=== PATIENT | male | born 1985 | race Caucasian/White ===

== ENCOUNTER 2019-09-19 19:34 | Emergency (ER) | payer OTHER ==
[~2019-09-19] VITALS: Ht 182 cm; Wt 79.3 kg
[2019-09-19] MEDS ORDERED: LACTATED RINGERS 1,000 ML IV ONE (19:58)
[2019-09-19 20:02] LABS: BASOPHILS % (AUTO) 1 % (0-10); EOSINOPHILS # (AUTO) 0.1 10^3/uL (0.0-0.3); EOSINOPHILS % (AUTO) 2 % (0-10); HEMATOCRIT 42 % (40-54); HEMOGLOBIN 14.5 G/DL (13.3-17.7); LYMPHOCYTES # (AUTO) 2.5 X 10^3 (1.0-4.0); LYMPHOCYTES % (AUTO) 30 % (12-44); MEAN CORPUSCULAR HEMOGLOBIN 29 PG (25-34); MEAN CORPUSCULAR HGB CONC 34 G/DL (32-36); MEAN CORPUSCULAR VOLUME 84 FL (80-99); MEAN PLATELET VOLUME 10.1 FL (7.4-10.4); MONOCYTES # (AUTO) 0.8 X 10^3 (0.0-1.0); MONOCYTES % (AUTO) 10 % (0-12); NEUTROPHILS # (AUTO) 4.8 X 10^3 (1.8-7.8); NEUTROPHILS % (AUTO) 58 % (42-75); PLATELET COUNT 371 10^3/uL (130-400); RED CELL DISTRIBUTION WIDTH 13.9 % (10.0-14.5); WHITE BLOOD COUNT 8.3 10^3/uL (4.3-11.0)
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
[2019-09-19] MEDS ORDERED: KETOROLAC 30 MG/ML VIAL IVP ONE (20:15)
[2019-09-19 20:19] LABS: ALANINE AMINOTRANSFERASE 16 U/L (0-55); ALBUMIN 4.2 GM/DL (3.2-4.5); ALKALINE PHOSPHATASE 84 U/L (40-136); BILIRUBIN,TOTAL 0.4 MG/DL (0.1-1.0); BUN/CREATININE RATIO 10; CALCIUM 9.5 MG/DL (8.5-10.1); CARBON DIOXIDE 21 MMOL/L (21-32); CHLORIDE 108 MMOL/L (98-107); CREATINE KINASE 42 U/L (30-200); CREATININE SERUM 1.28 MG/DL (0.60-1.30); GFR ESTIMATED > 60; GLUCOSE 94 MG/DL (70-105); POTASSIUM 3.4 MMOL/L (3.6-5.0); SODIUM 143 MMOL/L (135-145); TOTAL PROTEIN 7.6 GM/DL (6.4-8.2)
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
--- NOTE | 2019-09-19 20:59 | NUR ---
Patient care report from Janey Kent RN.
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
[2019-09-19 21:23] VITALS: BP 119/75
== END 2019-09-19 21:31 | disposition home or self-care (01) ==
LOC: ER 19:38
DX: S00.83XA Contusion of other part of head, initial encounter (principal); S00.12XA Contusion of left eyelid and periocular area, initial encounter; S20.20XA Contusion of thorax, unspecified, initial encounter; J33.8 Other polyp of sinus; R40.2142 Coma scale, eyes open, spontaneous, at arrival to emergency department; R40.2252 Coma scale, best verbal response, oriented, at arrival to emergency department; R40.2362 Coma scale, best motor response, obeys commands, at arrival to emergency department; F17.210 Nicotine dependence, cigarettes, uncomplicated; Z88.0 Allergy status to penicillin; Z88.2 Allergy status to sulfonamides; Z88.5 Allergy status to narcotic agent; Z88.1 Allergy status to other antibiotic agents; Z88.8 Allergy status to other drugs, medicaments and biological substances; Y04.0XXA Assault by unarmed brawl or fight, initial encounter
CPT/HCPCS: 36415; 70486; 71100; 80053; 82550; 85025

== ENCOUNTER 2019-10-04 03:30 | Inpatient (IN) | payer OTHER ==
[~2019-10-04] VITALS: Ht 182.8 cm; Wt 73.4 kg
[2019-10-04] VITALS (16 sets, daily range): BP systolic 87–133; BP diastolic 46–96
[2019-10-04] MEDS ORDERED: LACTATED RINGERS 1,000 ML IV ONE ×2 (03:37→04:43)
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
[2019-10-04] MEDS ORDERED: NS 100 ML (IVPB) BAG IV ONE (03:45)
[2019-10-04] MEDS ORDERED: IOHEXOL 350 MG/ML 100 ML (OMNIPAQUE 350) VIAL IV ONE (03:45)
[2019-10-04] MEDS ORDERED: HOLD METFORMIN - RECEIVED CONTRAST 20 ML VIAL IV SCH (03:45)
[2019-10-04 03:46] LABS: HEMOGLOBIN 12.8 G/DL (13.3-17.7); MEAN PLATELET VOLUME 9.8 FL (7.4-10.4); WHITE BLOOD COUNT 21.6 10^3/uL (4.3-11.0)
[2019-10-04 03:57] LABS: ALBUMIN 3.9 GM/DL (3.2-4.5); CHLORIDE 100 MMOL/L (98-107); POTASSIUM 3.9 MMOL/L (3.6-5.0); SODIUM 135 MMOL/L (135-145)
[2019-10-04 03:59] LABS: CALCIUM 8.9 MG/DL (8.5-10.1)
[2019-10-04 04:00] LABS: GLUCOSE 100 MG/DL (70-105)
[2019-10-04] MEDS ORDERED: TETANUS,DIPTH,PERTUSS P/F (BOOSTRIX) 0.5 ML VIAL IM ONE (04:00)
[2019-10-04 04:01] LABS: BILIRUBIN,TOTAL 0.9 MG/DL (0.1-1.0); CARBON DIOXIDE 21 MMOL/L (21-32)
[2019-10-04 04:04] LABS: ALKALINE PHOSPHATASE 82 U/L (40-136); CREATININE SERUM 1.87 MG/DL (0.60-1.30); GFR ESTIMATED 41
[2019-10-04 04:05] LABS: BILIRUBIN,DIRECT 0.6 MG/DL (0.0-0.3); BILIRUBIN,INDIRECT 0.3 MG/DL; BUN/CREATININE RATIO 15
[2019-10-04 04:07] LABS: ALANINE AMINOTRANSFERASE 21 U/L (0-55)
[2019-10-04] MEDS ORDERED: LIDOCAINE/EPI 2% 1:100,00 (XYLOCAINE) 20 ML VIAL ONE (04:26)
[2019-10-04] MEDS ORDERED: fentaNYL INJECTION 100 MCG/2 ML AMP IVP ONE (04:30)
[2019-10-04] MEDS ORDERED: VANCOMYCIN INJECTION 750 MG in NS (IVPB) 100 ML IV ONE (04:30)
[2019-10-04] MEDS ORDERED: CLINDAMYCIN 900 MG/50 ML IVPB 50 ML IV ONE (04:30)
--- NOTE | 2019-10-04 04:32 | NUR ---
WOUND CX COLLECTED FROM RIGHT FOREARM ABSCESS.
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
[2019-10-04] MEDS ORDERED: VANCOMYCIN INJECTION 500 MG in NS (IVPB) 100 ML IV ONE (05:30)
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
[2019-10-04] MEDS ORDERED: NS IV 500 ML 500 ML IV ONE (07:00)
[2019-10-04] MEDS ORDERED: ONDANSETRON 4 MG/2 ML (SDV) Z0FRAN IV PRN (07:00)
--- NOTE | 2019-10-04 07:06 | NUR ---
PTD Vancomycin - Patient received Loading Dose of 1250mg in ER, continue with maint dose of 1000mg every 12 hours. Trough ordered for 10/05 @ 0500.
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
[2019-10-04] MEDS: morphine INJ 4 MG/ML 1 ML (VIAL/SYRINGE) IV PRN ×4 (07:42→22:22)
[2019-10-04] MEDS: MEROPENEM 1,000 MG/SWFI 20 ML IV PUSH IV SCH ×6 (07:43→22:19)
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
[2019-10-04 07:48] LABS: AMPHETAMINE SCREEN, URINE POSITIVE (NEGATIVE); BARBITURATE SCREEN URINE NEGATIVE (NEGATIVE); BENZODIAZEPINES SCREEN URINE NEGATIVE (NEGATIVE); CANNABINOID SCREEN, URINE NEGATIVE (NEGATIVE); COCAINE SCREEN URINE NEGATIVE (NEGATIVE); METHADONE STAT NEGATIVE (NEGATIVE); METHAMPHETAMINE SCREEN URINE S POSITIVE (NEGATIVE); OPIATE SCREEN URINE NEGATIVE (NEGATIVE); OXYCODONE STAT NEGATIVE (NEGATIVE); PROPOXYPHENE STAT NEGATIVE (NEGATIVE); TRICYCLIC ANTIDEPRESSANTS SCRE NEGATIVE (NEGATIVE)
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
--- NOTE | 2019-10-04 08:41 | Diagnostic Imaging Report ---
Indication: Follow-up right-sided pneumothorax. Comparison: Earlier same date. Discussion: Single portable upright view of the chest was obtained. 1.4 cm right apical pneumothorax, decreased from previous 2.4 cm. No consolidation or pleural fluid. Normal heart size. No osseous abnormality. No foreign body. Impression: 1. Decreasing right apical pneumothorax. Dictated by: Dictated on workstation # [id number]
[2019-10-04] MEDS ORDERED: ACETAMINOPHEN 325 MG TABLET PO PRN (09:15)
[2019-10-04] MEDS: LACTATED RINGERS 1,000 ML IV SCH ×4 (09:17→23:32)
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
--- NOTE | 2019-10-04 13:28 | Diagnostic Imaging Report ---
INDICATION: Follow-up right pneumothorax. Dyspnea. COMPARISON: Earlier same date. DISCUSSION: Single portable upright expiratory view of the chest was obtained. 1.4 cm right apical pneumothorax is stable. No consolidation or pleural fluid. Normal heart size. No osseous abnormality. IMPRESSION: 1. Stable right apical small pneumothorax. Dictated by: Dictated on workstation # [id number]
--- NOTE | 2019-10-04 14:23 | NUR ---
LATE ENTRY: 1250 DR ESCOBEDO NOTIFIED THAT PT STATES " I FEEL LIKE I'M LEAKING AIR", PT LUNGS CTA SLIGHTLY DIMINISHED. BP NOTED AT 88/52 WITH PULSE 68. PT CONTINUES TO ASK FOR REGULAR FOOD, ORDERS RECEIVED TO OBTAIN CXR AT 1600 AND CONTINUE PT ON CLEAR LIQUID DIET. CXR ORDERED AT 1600, RADIOLOGY IN ROOM TO OBTAIN CXR AT 1330. DR ESCOBEDO NOTIFIED OF CXR RESULTS AND TIME OF CXR. NO NEW ORDERS RECEIVED. PT SITTING UP IN BED TEXTING ON PHONE, VOICES NO NEEDS AT THIS TIME, CALL LIGHT AND OTHER PERSONAL ITEMS WITHIN REACH WILL CONTINUE TO MONITOR.
[2019-10-04] MEDS: VANCOMYCIN 1 GM/NS 250 ML IVPB IV SCH ×2 (17:04)
--- NOTE | 2019-10-04 22:36 | NUR ---
This RN has educated pt multiple times about deep breathing and wearing the oxygen that is ordered by the doctor. Pt verbalizes understanding, but continues to remove oxygen in order to speak on the phone. This RN will continue to educate and monitor pt
[2019-10-05] VITALS (9 sets, daily range): BP systolic 104–121; BP diastolic 67–79
[2019-10-05 02:09] LABS: BASOPHILS % (AUTO) 0 % (0-10); EOSINOPHILS # (AUTO) 0.1 10^3/uL (0.0-0.3); EOSINOPHILS % (AUTO) 2 % (0-10); HEMATOCRIT 29 % (40-54); LYMPHOCYTES # (AUTO) 2.3 X 10^3 (1.0-4.0); LYMPHOCYTES % (AUTO) 39 % (12-44); MEAN CORPUSCULAR HEMOGLOBIN 29 PG (25-34); MEAN CORPUSCULAR HGB CONC 34 G/DL (32-36); MEAN CORPUSCULAR VOLUME 85 FL (80-99); MEAN PLATELET VOLUME 10.1 FL (7.4-10.4); MONOCYTES # (AUTO) 0.4 X 10^3 (0.0-1.0); MONOCYTES % (AUTO) 6 % (0-12); NEUTROPHILS # (AUTO) 3.1 X 10^3 (1.8-7.8); NEUTROPHILS % (AUTO) 53 % (42-75); PLATELET COUNT 281 10^3/uL (130-400); RED CELL DISTRIBUTION WIDTH 12.7 % (10.0-14.5); WHITE BLOOD COUNT 5.9 10^3/uL (4.3-11.0)
[2019-10-05] MEDS: morphine INJ 4 MG/ML 1 ML (VIAL/SYRINGE) IV PRN (02:09)
[2019-10-05 02:54] LABS: CHLORIDE 107 MMOL/L (98-107); POTASSIUM 3.7 MMOL/L (3.6-5.0); SODIUM 136 MMOL/L (135-145)
[2019-10-05 02:55] LABS: CALCIUM 7.9 MG/DL (8.5-10.1)
[2019-10-05 02:56] LABS: GLUCOSE 95 MG/DL (70-105)
[2019-10-05 02:57] LABS: CARBON DIOXIDE 21 MMOL/L (21-32)
[2019-10-05 03:00] LABS: CREATININE SERUM 0.77 MG/DL (0.60-1.30); GFR ESTIMATED > 60
[2019-10-05 03:01] LABS: BUN/CREATININE RATIO 16
[2019-10-05 03:02] LABS: MAGNESIUM 1.8 MG/DL (1.6-2.4)
[2019-10-05] MEDS ORDERED: MAGNESIUM 1 GM/100 ML IVPB 100 ML IV SCH ×2 (06:00)
[2019-10-05] MEDS ORDERED: KCL 20 MEQ TAB (K-DUR) PO SCH ×2 (06:00)
[2019-10-05] MEDS ORDERED: POTASSIUM CL 10MEQ/50ML IVPB 50 ML IV SCH ×2 (06:00)
[2019-10-05] MEDS: MEROPENEM 1,000 MG/SWFI 20 ML IV PUSH IV SCH ×2 (06:10)
[2019-10-05] MEDS: VANCOMYCIN 1 GM/NS 250 ML IVPB IV SCH ×2 (06:10)
[2019-10-05] MEDS: LACTATED RINGERS 1,000 ML IV SCH (06:12)
--- NOTE | 2019-10-05 07:49 | Diagnostic Imaging Report ---
Indication: Dyspnea. Comparison: 10/04/2019. Discussion: Single portable upright view of the chest was obtained. Right apical pneumothorax measures 1.1 cm, previously 1.5 cm. Focal consolidation within the mid to lower right lung could be seen with atelectasis or pneumonia. No pleural fluid. Normal heart size. No osseous abnormality. Impression: 1. Small right apical pneumothorax, slightly decreased. 2. New consolidation within the right mid to lower lung. Dictated by: Dictated on workstation # [id number]
--- NOTE | 2019-10-05 08:38 | NUR ---
0820 PT ASSESSMENT COMPLETE SEE FLOW SHEET, PT AGITATED THIS AM STATES " I'M READY TO GET OUT OF HERE," " I WAN'T SOME FOOD, I'M TIRED OF WAITING," PT AGREEABLE TO ALLOW THIS RN TO ASSESS HIM, THIS RN STATED TO PT THE RISK AND BENEFITS OF WAITING ON DR AND RECEIVED PROPER TREATMENT, PT CONTINUED TO STATE " I'M LEAVING," AMA PAPER SIGNED PT VERBALIZES UNDERSTANDING OF FORM, IV D/C WITH TIP INTACT. DR ESCOBEDO SPOKE TO LIQUID SUGAR FORTIFIER SHAY AND WAS INFORMED OF PT'S AMA. Addendum: 10/05/19 at 0842 by ROBER SEPULVEDA RN ALL PERSONAL ITEMS RETURNED TO PT.
[2019-10-05] MEDS ORDERED: KETO10TA PO (17:29)
[2019-10-05] MEDS ORDERED: CLIN300C11 PO (17:29)
[2019-10-06] MEDS ORDERED: TROUGH ORDER-PHARMACY XX NR (05:00)
== END 2019-10-05 08:30 | disposition left against medical advice (07) | DRG 853 ==
LOC: EDUNIT# 03:31 → ER 03:32 → ICU 04:54
PROVIDERS: ADMIT Surgery; ATTEND Surgery
PROC: 0J9G0ZZ Drainage of Right Lower Arm Subcutaneous Tissue and Fascia, Open Approach (ICD-10-PCS; principal; 2019-10-04)
DX: A41.9 Sepsis, unspecified organism (principal); S21.311A Laceration without foreign body of right front wall of thorax with penetration into thoracic cavity, initial encounter; L02.413 Cutaneous abscess of right upper limb; S27.0XXA Traumatic pneumothorax, initial encounter; E87.2 Acidosis; N17.9 Acute kidney failure, unspecified; R65.20 Severe sepsis without septic shock; F32.9 Major depressive disorder, single episode, unspecified; S21.212A Laceration without foreign body of left back wall of thorax without penetration into thoracic cavity, initial encounter; S21.211A Laceration without foreign body of right back wall of thorax without penetration into thoracic cavity, initial encounter; F17.210 Nicotine dependence, cigarettes, uncomplicated; F15.10 Other stimulant abuse, uncomplicated; X99.1XXA Assault by knife, initial encounter; Y92.009 Unspecified place in unspecified non-institutional (private) residence as the place of occurrence of the external cause; Y07.04 Female partner, perpetrator of maltreatment and neglect; Z23 Encounter for immunization
CPT/HCPCS: 10140; 36415; 71045; 71260; 73201; 74177; 80048; 80076; 80306; 80320; 83605; 83735; 85025; 85027; 86141; 86850; 86900; 86901; 87040; 87070; 87077; 87081; 87205; 90715; 93041

== ENCOUNTER 2019-10-05 15:55 | Emergency (ER) | payer OTHER ==
[~2019-10-05] VITALS: Ht 182 cm; Wt 74.8 kg
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
[2019-10-05 17:01] LABS: AMPHETAMINE SCREEN, URINE POSITIVE (NEGATIVE); BARBITURATE SCREEN URINE NEGATIVE (NEGATIVE); BENZODIAZEPINES SCREEN URINE NEGATIVE (NEGATIVE); CANNABINOID SCREEN, URINE NEGATIVE (NEGATIVE); COCAINE SCREEN URINE NEGATIVE (NEGATIVE); METHADONE STAT NEGATIVE (NEGATIVE); METHAMPHETAMINE SCREEN URINE S POSITIVE (NEGATIVE); OPIATE SCREEN URINE POSITIVE (NEGATIVE); OXYCODONE STAT POSITIVE (NEGATIVE); PROPOXYPHENE STAT NEGATIVE (NEGATIVE); TRICYCLIC ANTIDEPRESSANTS SCRE NEGATIVE (NEGATIVE)
[2019-10-05] MEDS ORDERED: CLINDAMYCIN 600 MG/4ML (CLEOCIN) VIAL IM ONE (17:15)
[2019-10-05] MEDS ORDERED: CLINDAMYCIN 300 MG/2ML (CLEOCIN) VIAL ONE (17:21)
[2019-10-05] MEDS ORDERED: KETO10TA PO (17:29)
[2019-10-05] MEDS ORDERED: CLIN300C11 PO (17:29)
[2019-10-05] MEDS ORDERED: KETOROLAC 60 MG/2 ML VIAL IM ONE (17:30)
--- NOTE | 2019-10-05 17:34 | NUR ---
When this rn walked into pt room to dress pt wound and administer medication, pt was shuffling thtough cabinets and dressing own arm. pt refuses im cleocin and toradol. pt states, "I don't know why I even came back, they told this morning after I checked out ama that I could come back and get readmitted." "I don't need antibiotics, I'll figure it out."
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
[2019-10-05 17:35] VITALS: BP 110/68
== END 2019-10-05 17:34 | disposition home or self-care (01) ==
LOC: EDUNIT# 15:55 → ER 15:57
DX: L02.413 Cutaneous abscess of right upper limb (principal); J18.9 Pneumonia, unspecified organism; J93.9 Pneumothorax, unspecified; G89.29 Other chronic pain; M54.9 Dorsalgia, unspecified; F17.210 Nicotine dependence, cigarettes, uncomplicated; Z87.828 Personal history of other (healed) physical injury and trauma; Z88.0 Allergy status to penicillin; Z88.2 Allergy status to sulfonamides; Z88.5 Allergy status to narcotic agent; Z88.1 Allergy status to other antibiotic agents; Z88.8 Allergy status to other drugs, medicaments and biological substances; Z79.1 Long term (current) use of non-steroidal anti-inflammatories (NSAID)
CPT/HCPCS: 71046; 80306

== ENCOUNTER 2019-11-26 20:17 | Emergency (ER) | payer OTHER ==
[~2019-11-26] VITALS: Ht 182 cm; Wt 70.0 kg
[2019-11-26 20:17] VITALS: BP 128/73
[~2019-11-26 20:17] MED LIST: CLIN300C11 PO; KETO10TA PO
[2019-11-26] MEDS ORDERED: NS IV 500 ML 500 ML IV ONE (20:20)
[2019-11-26] MEDS ORDERED: ONDANSETRON 4 MG/2 ML (SDV) Z0FRAN ONE (20:29)
--- NOTE | 2019-11-26 20:29 | ED Integumentary General ---
General Chief Complaint: Skin/Wound Problems Stated Complaint: SPIDER BITE Nursing Triage Note: PT ARRIVES BY EMS WITH WHAT HE THINKS IS A SPIDER BITE TO HIS LEFT FOREHEAD AND RIGHT JAW; STATES ONSET 2 DAYS AGO. PT REPORTS NAUSEA BUT HAS NOT VOMITED. Source: patient Exam Limitations: no limitations History of Present Illness Date Seen by Provider: Nov 26, 2019 Time Seen by Provider: 20:10 Initial Comments Patient arrives by EMS from home with chief complaint of 3 days of swelling pain in the right side of his jaw that he's been draining purulent material from. He has a similar but smaller wound on his left forehead. He has multiple small excoriations over the veins of bilateral forearms which she remarks are from bumping into things. Patient denies any fever or vomiting but does have some queasy nausea feeling at times. He's been using Tylenol and ibuprofen. He says penicillins cause him to go anaphylactic and . Allergies and Home Medications Allergies Coded Allergies: Penicillins (Verified Allergy, Unknown, 09/19/19) sulfamethoxazole (Verified Allergy, Unknown, 09/19/19) tramadol (Verified Allergy, Unknown, 09/19/19) trimethoprim (Verified Allergy, Unknown, 09/19/19) diclofenac (Verified Adverse Reaction, Unknown, palpitations, 09/19/19) Home Medications Clindamycin HCl 300 Mg Capsule, 300 MG PO QID Prescribed by: FRANCISCO DOMINIQUE on 10/05/191728 Ketorolac Tromethamine 10 Mg Tablet, 10 MG PO Q6H Prescribed by: FRANCISCO DOMINIQUE on 10/05/19 1729 Patient Home Medication List Home Medication List Reviewed: Yes Review of Systems Review of Systems Constitutional: No chills, No fever EENTM: No ear discharge, No ear pain Respiratory: No cough, No short of breath Cardiovascular: No chest pain, No Hx of Intervention Gastrointestinal: No abdominal pain, No nausea, No vomiting Genitourinary: No discharge, No dysuria Musculoskeletal: No back pain, No joint pain Skin: No pruritus, No rash Psychiatric/Neurological: Denies Headache, Denies Numbness All Other Systems Reviewed Negative Unless Noted: Yes Past Pyhngwb-Brngfu-Cfrdkx Hx Patient Social History Alcohol Use: Occasionally Uses Number of Drinks Today: AA Alcohol Beverage of Choice: Beer Recreational Drug Use: No Drug of Choice: THC, UDS + FOR METH Smoking Status: Current Everyday Smoker Type Used: Cigarettes 2nd Hand Smoke Exposure: Yes Recent Foreign Travel: No Contact w/Someone Who Travel: No Recent Infectious Disease Expo: No Recent Hopitalizations: Yes (10/04/19) Immunizations Up To Date Tetanus Booster (TDap): Unknown Seasonal Allergies Seasonal Allergies: No Past Medical History Surgeries: Yes (knee x 2, ) Orthopedic Respiratory: No Cardiac: No Neurological: No Genitourinary: No Gastrointestinal: No Musculoskeletal: Yes (KNEE SURGERY) Back Injury, Chronic Back Pain Endocrine: No HEENT: No Cancer: No Psychosocial: Yes Depression Integumentary: No Family Medical History No Pertinent Family Hx Physical Exam Vital Signs Vital Signs - First Documented 11/26/19 20:17 Temp 37.5 Pulse 118 Resp 18 B/P (MAP) 128/73 (91) Pulse Ox 93 O2 Delivery Room Air Capillary Refill : Less Than 3 Seconds General Appearance: mild distress, thin HEENT: PERRL/EOMI, normal ENT inspection, TMs normal, pharynx normal (mod dental caries) Cardiovascular: normal peripheral pulses, regular rate, rhythm Respiratory: no respiratory distress, no accessory muscle use Gastrointestinal: normal bowel sounds, non tender, soft Neurologic/Psychiatric: consultative sales associate II-XII nml as tested, no motor/sensory deficits, alert Skin: other (and multiple excoriations over the veins of bilateral upper extremities. There is a large 6 cm diameter area of calor, rubor, induration and tenderness with some mild fluctuance and a central pore that the patient has opened up. This is over his right jawline. Under the left frontal scalp there is a 3 cm similar area of induration without any fluctuance and an open central pore.) Procedures/Interventions I&D : Site: right angle of the mandible Blade Size: 11 I & D Procedure: betadine prep (chlorhexidine), sterile dressing applied Progress Skin was infiltrated with 3 cc of 1% lidocaine without epinephrine. The patient had good anesthesia. Wound was thoroughly cleansed with chlorhexidine and sterile saline and then the previous poor was opened wider 1 cm x 1 cm in the corners were trimmed. Using a sterile cotton tip probe we were able to break up any loculations and express out some sanguinous purulent discharge. A cavity approximately 1 x 2 by half centimeter was explored. Was flushed with about 200 cc of chlorhexidine and sterile saline and then sterile saline alone. Progress/Results/Core Measures Results/Orders Lab Results Laboratory Tests Test 11/26/19 20:23 Range/Units White Blood Count 11.9 H 4.3-11.0 10^3/uL Red Blood Count 4.44 4.35-5.85 10^6/uL Hemoglobin 12.7 L 13.3-17.7 G/DL Hematocrit 37 L 40-54 % Mean Corpuscular Volume 82 80-99 FL Mean Corpuscular Hemoglobin 29 25-34 PG Mean Corpuscular Hemoglobin Concent 35 32-36 G/DL Red Cell Distribution Width 13.7 10.0-14.5 % Platelet Count 335 130-400 10^3/uL Mean Platelet Volume 9.9 7.4-10.4 FL Neutrophils (%) (Auto) 77 H 42-75 % Lymphocytes (%) (Auto) 14 12-44 % Monocytes (%) (Auto) 7 0-12 % Eosinophils (%) (Auto) 1 0-10 % Basophils (%) (Auto) 0 0-10 % Neutrophils # (Auto) 9.2 H 1.8-7.8 X 10^3 Lymphocytes # (Auto) 1.7 1.0-4.0 X 10^3 Monocytes # (Auto) 0.9 0.0-1.0 X 10^3 Eosinophils # (Auto) 0.1 0.0-0.3 10^3/uL Basophils # (Auto) 0.1 0.0-0.1 10^3/uL Sodium Level 134 L 135-145 MMOL/L Potassium Level 4.1 3.6-5.0 MMOL/L Chloride Level 99 98-107 MMOL/L Carbon Dioxide Level 20 L 21-32 MMOL/L Anion Gap 15 H 5-14 MMOL/L Blood Urea Nitrogen 27 H 7-18 MG/DL Creatinine 1.62 H 0.60-1.30 MG/DL Estimat Glomerular Filtration Rate 48 BUN/Creatinine Ratio 17 Glucose Level 77 70-105 MG/DL Calcium Level 9.4 8.5-10.1 MG/DL Corrected Calcium 9.2 8.5-10.1 MG/DL Total Bilirubin 1.5 H 0.1-1.0 MG/DL Aspartate Amino Transf (AST/SGOT) 41 H 5-34 U/L Alanine Aminotransferase (ALT/SGPT) 26 0-55 U/L Alkaline Phosphatase 83 40-136 U/L Total Protein 7.9 6.4-8.2 GM/DL Albumin 4.3 3.2-4.5 GM/DL My Orders Orders - JAKE GARZA Cbc With Automated Diff (11/26/19 20:20) Comprehensive Metabolic Panel (11/26/19 20:20) Hydrocodone/Apap 5/325 Tablet (Lortab 5 (11/26/19 20:30) Lidocaine 1% Inj 20 Ml (Xylocaine 1% Inj (11/26/19 20:30) Ed Iv/Invasive Line Start (11/26/19 20:20) Ns Iv 500 Ml (Sodium Chloride 0.9%) (11/26/19 20:20) Clindamycin 600 Mg/50 Ml Ivpb (Cleocin P (11/26/19 20:30) Ondansetron Injection (Zofran Injectio (11/26/19 20:45) Ondansetron Injection (Zofran Injectio (11/26/19 20:29) Medications Given in ED Current Medications Medications Dose Ordered Sig/Hossein Route Start Time Stop Time Status Last Admin Dose Admin Acetaminophen/ Hydrocodone Bitart 1 tab ONCE ONCE PO 11/26/19 20:30 11/26/19 20:31 DC 11/26/19 20:39 1 TAB Clindamycin Phosphate/Dextrose 50 ml @ 100 mls/hr ONCE ONCE IV 11/26/19 20:30 11/26/19 20:59 11/26/19 20:46 100 MLS/HR Lidocaine HCl 20 ml ONCE ONCE INJ 11/26/19 20:30 11/26/19 20:31 DC 11/26/19 20:50 20 ML Ondansetron HCl 4 mg ONCE ONCE IVP 11/26/19 20:45 11/26/19 20:46 DC 11/26/19 20:37 4 MG Sodium Chloride 500 ml @ 0 mls/hr Q0M ONCE IV 11/26/19 20:20 11/26/19 20:28 DC 11/26/19 20:36 500 MLS/HR Vital Signs/I&O 11/26/19 20:17 Temp 37.5 Pulse 118 Resp 18 B/P (MAP) 128/73 (91) Pulse Ox 93 O2 Delivery Room Air Blood Pressure Mean: 91 Progress Progress Note : Time: 20:56 Progress Note Because of the tachycardia and mildly elevated BUN and troponin we did give him some IV fluids in addition to clindamycin for a total 750 cc. He is drinking fluids in the room. He is not septic at this time. There was felt that his tachycardia may relate to stimulants more so than systemic inflammatory response. After his IV clindamycin as done we'll allow him to go home. Hydrocodone for his discomfort. Departure Impression Primary Impression: Abscess of face Disposition: HOME, SELF-CARE Condition: Improved Departure-Patient Inst. Decision time for Depature: 21:00 Referrals: NO,LOCAL PHYSICIAN (PCP/Family) Primary Care Physician Patient Instructions: Abscess Incision and Drainage (DC) Add. Discharge Instructions: Keep the wound cleaned thoroughly with soap and water. Do not put anything in the wound. You may dress the wound with a clean, dry gauze dressing and change it as frequently as daily dressing becomes soiled. The wound will heal over the next 3-4 days. The abscess should improve over the next 1-2 weeks. Take 3 capsules of clindamycin with food. Do this 4 times a day for the next week. Follow-up with your primary care doctor or return to the ER if you're having worsening symptoms or reaccumulation of infection. Tylenol 650 mg every 6 hours as necessary for pain. Apply a thin layer of mupirocin to the wounds on your forehead and arms twice daily for the next week. Clean with soap and water only. Do not use astringent's such as hydrogen peroxide, alcohol, Betadine/iodine. All discharge instructions reviewed with patient and/or family. Voiced understanding. Scripts Clindamycin HCl (Clindamycin HCl) 150 Mg Capsule 450 MG PO QID for 7 Days, #84 CAP 0 Refills Prov: JAKE GARZA 11/26/19 JAKE GARZA Nov 26, 2019 20:29
[2019-11-26] MEDS ORDERED: CLINDAMYCIN 600 MG/50 ML IVPB 50 ML IV ONE (20:30)
[2019-11-26] MEDS ORDERED: LIDOCAINE 1% INJ 20 ML 20 ML VIAL INJ ONE (20:30)
[2019-11-26] MEDS ORDERED: HYDROcodone/APAP 5 MG/325 MG (LORTAB) TAB PO ONE (20:30)
--- NOTE | 2019-11-26 20:30 | NUR ---
PT ARRIVES WITH CONCERN FOR TWO WOUNDS TO HIS FACE; ONE ON THE LEFT FOREHEAD AND ONE ON THE RIGHT JAW; PT REPORTS ONSET 2 DAYS AGO AND THAT HE HAS BEEN SQUEEZING THEM AT HOME. PT HAS MULTIPLE SCABBED AREAS TO HIS ARMS. DENIES ILLICIT DRUG USE. PT IS RESTLESS AND APPEARS AGITATED BUT IS EASILY REASSURED.
[2019-11-26 20:36] LABS: BASOPHILS # (AUTO) 0.1 10^3/uL (0.0-0.1); BASOPHILS % (AUTO) 0 % (0-10); EOSINOPHILS # (AUTO) 0.1 10^3/uL (0.0-0.3); EOSINOPHILS % (AUTO) 1 % (0-10); HEMATOCRIT 37 % (40-54); HEMOGLOBIN 12.7 G/DL (13.3-17.7); LYMPHOCYTES # (AUTO) 1.7 X 10^3 (1.0-4.0); LYMPHOCYTES % (AUTO) 14 % (12-44); MEAN CORPUSCULAR HEMOGLOBIN 29 PG (25-34); MEAN CORPUSCULAR HGB CONC 35 G/DL (32-36); MEAN CORPUSCULAR VOLUME 82 FL (80-99); MEAN PLATELET VOLUME 9.9 FL (7.4-10.4); MONOCYTES # (AUTO) 0.9 X 10^3 (0.0-1.0); MONOCYTES % (AUTO) 7 % (0-12); NEUTROPHILS # (AUTO) 9.2 X 10^3 (1.8-7.8); NEUTROPHILS % (AUTO) 77 % (42-75); PLATELET COUNT 335 10^3/uL (130-400); RED CELL DISTRIBUTION WIDTH 13.7 % (10.0-14.5); WHITE BLOOD COUNT 11.9 10^3/uL (4.3-11.0)
[2019-11-26 20:41] LABS: ALBUMIN 4.3 GM/DL (3.2-4.5); POTASSIUM 4.1 MMOL/L (3.6-5.0)
[2019-11-26 20:42] LABS: CALCIUM 9.4 MG/DL (8.5-10.1)
[2019-11-26 20:44] LABS: TOTAL PROTEIN 7.9 GM/DL (6.4-8.2)
[2019-11-26 20:45] LABS: BILIRUBIN,TOTAL 1.5 MG/DL (0.1-1.0)
[2019-11-26] MEDS ORDERED: ONDANSETRON 4 MG/2 ML (SDV) Z0FRAN IVP ONE (20:45)
[2019-11-26 20:47] LABS: CREATININE SERUM 1.62 MG/DL (0.60-1.30)
--- NOTE | 2019-11-26 20:53 | NUR ---
DR. GARZA AT BEDSIDE FOR I&D. PT TOLERATED WELL.
[2019-11-26] MEDS ORDERED: CLIN150C17 PO (21:06)
--- NOTE | 2019-11-27 04:35 | NUR ---
D/C education provided to patient; pt verbalized an udnerstanding and all questions answered. Pt ambulated from ER without incident and in no apparent distress.
== END 2019-11-26 21:20 | disposition home or self-care (01) ==
LOC: EDUNIT# 20:17 → ER 20:18
DX: K12.2 Cellulitis and abscess of mouth (principal); S50.812A Abrasion of left forearm, initial encounter; S50.811A Abrasion of right forearm, initial encounter; F17.210 Nicotine dependence, cigarettes, uncomplicated; Z88.0 Allergy status to penicillin; Z88.2 Allergy status to sulfonamides; Z88.6 Allergy status to analgesic agent; Z88.8 Allergy status to other drugs, medicaments and biological substances; X58.XXXA Exposure to other specified factors, initial encounter
CPT/HCPCS: 36415; 80053; 85025

== ENCOUNTER 2020-11-06 17:54 | Emergency (ER) | payer OTHER ==
[~2020-11-06] VITALS: Ht 182.8 cm; Wt 63.0 kg
[~2020-11-06 17:54] MED LIST changes: +CLIN150C18 PO; -CLIN300C11 PO; +CLIN300C12 PO
[2020-11-06 18:00] VITALS: BP 125/78
[2020-11-06] MEDS ORDERED: DOXY100T2 PO (18:30)
[2020-11-06] MEDS ORDERED: DOXYCYCLINE 100 MG (VIBRAMYCIN) TABLET PO SCH (18:30)
--- NOTE | 2020-11-06 18:31 | ED Integumentary General ---
General Chief Complaint: Skin/Wound Problems Stated Complaint: KNOT ON BACK OF HEAD Nursing Triage Note: Pt ambulatory into ER with complaint of Sore on posterior head x2 day. Pt states that he has squeezed it with no drainage. Pt states that its sore to touch. Source: patient Exam Limitations: no limitations History of Present Illness Date Seen by Provider: Nov 06, 2020 Time Seen by Provider: 18:28 Initial Comments To ER with a sore to the right occipital region of the scalp for a few days. He has been trying to squeeze this at home to get it to drain but unable to do so. No systemic symptoms such as fevers chills nausea or vomiting. Timing/Duration: other Severity: moderate Associated Symptoms: denies symptoms Allergies and Home Medications Allergies Coded Allergies: Penicillins (Verified Allergy, Unknown, 09/19/19) sulfamethoxazole (Verified Allergy, Unknown, 09/19/19) tramadol (Verified Allergy, Unknown, 09/19/19) trimethoprim (Verified Allergy, Unknown, 09/19/19) diclofenac (Verified Adverse Reaction, Unknown, palpitations, 09/19/19) Home Medications Clindamycin HCl 300 Mg Capsule, 300 MG PO QID Prescribed by: FRANCISCO DOMINIQUE on 10/05/19 1729 Clindamycin HCl 150 Mg Capsule, 450 MG PO QID Prescribed by: JAKE GARZA on 11/26/19 210 Ketorolac Tromethamine 10 Mg Tablet, 10 MG PO Q6H Prescribed by: FRANCISCO DOMINIQUE on 10/05/19 1729 Patient Home Medication List Home Medication List Reviewed: Yes Review of Systems Review of Systems Constitutional: see HPI EENTM: see HPI Respiratory: no symptoms reported Cardiovascular: no symptoms reported Genitourinary: no symptoms reported Musculoskeletal: no symptoms reported Skin: no symptoms reported Psychiatric/Neurological: No Symptoms Reported Endocrine: No Symptoms Reported Hematologic/Lymphatic: No Symptoms Reported Past Uwgzsnk-Ztfhvt-Cxzxxh Hx Patient Social History Tobacco Use?: Yes Tobacco type used: Cigarettes Smoking Status: Current Everyday Smoker Use of E-Cig and/or Vaping dev: No Substance use?: No Alcohol Use?: No Pt feels they are or have been: No Immunizations Up To Date Tetanus Booster (TDap): Unknown Influenza Vaccine Up-to-Date: No; Not Current Second COVID19 Vaccination Eddie: 08/13 COVID19 Vaccine Supervisor Functional Testing: Moderna Seasonal Allergies Seasonal Allergies: No Past Medical History Surgeries: Yes (knee x 2, ) Orthopedic Respiratory: No Cardiac: No Neurological: No Genitourinary: No Gastrointestinal: No Musculoskeletal: Yes (KNEE SURGERY) Back Injury, Chronic Back Pain Endocrine: No HEENT: No Cancer: No Psychosocial: Yes Depression Integumentary: No Family Medical History No Pertinent Family Hx Physical Exam Vital Signs Vital Signs - First Documented 11/06/20 18:00 Temp 37.2 Pulse 104 Resp 16 B/P (MAP) 125/78 (94) O2 Delivery Room Air Capillary Refill : Less Than 3 Seconds General Appearance: WD/WN, no apparent distress Neck: non-tender, full range of motion Respiratory: no respiratory distress, no accessory muscle use Neurologic/Psychiatric: alert, normal mood/affect, oriented x 3 Skin: normal color, warm/dry Skin Problem Location: scalp Skin Problem Character: warm (There is a 4 cm area of slight erythema and induration with central eschar. No fluctuance. This is located at the right occipital region. Nothing to drain here.) Progress/Results/Core Measures Results/Orders Vital Signs/I&O 11/06/20 18:00 Temp 37.2 Pulse 104 Resp 16 B/P (MAP) 125/78 (94) O2 Delivery Room Air Blood Pressure Mean: 94 Departure Impression Primary Impression: Soft tissue infection Disposition: 01 HOME, SELF-CARE Condition: Stable Departure-Patient Inst. Decision time for Depature: 18:29 Referrals: NO,LOCAL PHYSICIAN (PCP/Family) Primary Care Physician Patient Instructions: Wound Infection Add. Discharge Instructions: 1. Warm compresses to the area. Antibiotics as directed. All discharge instructions reviewed with patient and/or family. Voiced understanding. Scripts Doxycycline Hyclate (Doxycycline Hyclate) 100 Mg Tablet 100 MG PO BID, #14 TAB 0 Refills Prov: DUANE DAVALOS APRN 11/06/20 DUANE DAVALOS [facility] [employer] [facility] Nov 06, 2020 18:31
== END 2020-11-06 18:36 | disposition home or self-care (01) ==
LOC: EDUNIT# 17:54 → ER 17:55
DX: L08.9 Local infection of the skin and subcutaneous tissue, unspecified (principal); F17.210 Nicotine dependence, cigarettes, uncomplicated
CPT/HCPCS: 99283